=== PATIENT | male | born 1950 | race Caucasian/White ===

== ENCOUNTER → 2019-10-07 | Outpatient (CLI) | payer MEDICARE | END | disposition home or self-care (01) | LOC: LABPAT 07:59 | PROVIDERS: ATTEND Orthopaedic Surgery | DX: Z01.812 Encounter for preprocedural laboratory examination (principal) | CPT/HCPCS: 87070 ==

== ENCOUNTER 2019-10-26 08:50 | Day surgery (SDC) | payer MEDICARE ==
[2019-10-22 14:12] VITALS: BMI 28.5
--- NOTE | 2019-10-25 16:14 | HP ---
HISTORY AND PHYSICAL REASON FOR ADMISSION: Surgery scheduled for 10/26/2019 Rasheed Angulo is a 69-year-old patient seen with symptomatic right knee osteoarthritis. After having treatment options discussed, he elected to proceed with total knee arthroplasty. Consent regarding the procedure was obtained. Medical clearance was provided by Dr. Jose L Pedro. PAST MEDICAL HISTORY: Hypertension, hyperlipidemia. PAST SURGICAL HISTORY: Appendectomy. DAILY MEDICATIONS: Aspirin, atorvastatin, carvedilol, lisinopril, multivitamin. ALLERGIES: None. SOCIAL HISTORY: Smokes 1/4 pack cigarettes daily. PHYSICAL EXAMINATION: Evaluation of the right knee: Range of motion 0-130. Mild effusion. Tenderness medial joint line. Crepitus medial patellofemoral compartments range of motion. Pain with patellofemoral compression. Ligaments stable. Hip rotation without pain. Distal neurovascular exam is intact. RADIOGRAPHS: Right knee reveal severe osteoarthritis involving the medial patellofemoral compartments. IMPRESSION: 1. Right knee osteoarthritis. 2. Hypertension. 3. Hyperlipidemia. PLAN: Right total knee arthroplasty. Surgery 10/26/2019. MMODL / IJN: [id number] /
[~2019-10-26 08:50] MED LIST: ACETAMINOPHEN TAB 500 MG TAB PO ONE; DEXAMETHASONE SOD PHOSPHATE 10 MG/ML 1 ML VIAL IV ONE; HYDROmorphone 0.5 MG/0.5 ML SYRINGE IVP PRN; LIDOCAINE 1% 20 ML VIAL (10MG/ML) FOR IV START INTRADERMA PRN; MELOXICAM 7.5 MG TAB PO ONE; ONDANSETRON 4 MG/2 ML VIAL IVP ONE; ROPIVACAINE 246.25 MG, EPINEPHrine 0.5 MG, KETOROLAC 30 MG, cloNIDine HCL/PF 80 MCG, WA... MISCELLANE ONE; TRANEXAMIC ACID 1,000 MG in SODIUM CHLORIDE 0.9% 100 ML IVPB ONE
[2019-10-26] MEDS: LACTATED RINGERS 1,000 ML IV SCH ×4 (09:20→21:33)
[2019-10-26] MEDS: fentaNYL (PF) 50 MCG/ML 2 ML AMP IV ONE ×2 (09:38→10:08)
[2019-10-26] MEDS: MIDAZOLAM 2 MG/2 ML VIAL IV ONE ×2 (09:38→10:08)
[2019-10-26] MEDS ORDERED: TRANEXAMIC ACID 1,000 MG/10 ML VIAL ONE (10:08)
[2019-10-26] MEDS ORDERED: ePHEDrine SULFATE/0.9% NACL/PF 50 MG/5 ML SYRINGE IV ONE (10:08)
[2019-10-26] MEDS ORDERED: MIDAZOLAM 2 MG/2 ML VIAL ONE (10:08)
[2019-10-26] MEDS ORDERED: PROPOFOL 10 MG/ML 20 ML VIAL IV ONE (10:08)
[2019-10-26] MEDS ORDERED: PHENYLEPHRINE-0.9% NACL SYG 1 MG/10 ML SYRINGE ONE (10:08)
[2019-10-26] MEDS ORDERED: SODIUM CHLORIDE 0.9% 100 ML BAG ONE (10:08)
[2019-10-26] MEDS ORDERED: LACTATED RINGERS 1,000 ML IV ONE ×2 (10:10→11:20)
[2019-10-26] MEDS ORDERED: ROPIVACAINE 0.2%-NS ON-Q PUMP 1,090 MG, EMPTY PAIN BALL 1 EACH MISCELLANE PRN (10:34)
--- NOTE | 2019-10-26 10:36 | P.ANPRN ---
Procedure Note - Anesthesia - Nerve Block Performed Right Adductor Canal Infusion Time Out Performed: Yes Date of Procedure: 10/26/19 Procedure Start Time: 07:41 Procedure Stop Time: 07:48 Location of Patient: PreOp Indication: Acute Post-Operative Pain, Requested by Surgeon Specifically requested for management of pain by DrRobert: Guevara Guy Sedation Type: Sedate with meaningful contact maintained Preparation: Sterile Prep Position: Supine Catheter Depth at Skin (cm): 6 Catheter: Indwelling Needle Types: Pajunk Needle Gauge: 18 Ultrasound used to visualize needle placement: Yes Ultrasound used to observe medication spread: Yes Injectate: 0.5% Ropivacaine (see comment for volume) (20 cc) Blood Aspirated: No Pain Paresthesia on Injection Noted: No Resistance on Injection: Normal Image Stored and Saved: Yes Events: Uneventful and Well Tolerated
[2019-10-26] MEDS ORDERED: HYDROmorphone 0.5 MG/0.5 ML SYRINGE IVP PRN ×3 (12:31)
[2019-10-26] MEDS ORDERED: NALOXONE 0.4 MG/ML 1 ML VIAL IV PRN (12:31)
[2019-10-26] MEDS ORDERED: HYDROcodone/APAP 5-325MG 1 EACH TAB PO PRN ×2 (12:31)
[2019-10-26] MEDS ORDERED: ONDANSETRON 4 MG/2 ML VIAL IVP PRN (12:31)
--- NOTE | 2019-10-26 12:31 | P.OP ---
Date of Procedure: 10/26/19 Preoperative Diagnosis: Right knee osteoarthritis Postoperative Diagnosis: Right knee osteoarthritis Procedure(s) Performed: Right total knee arthroplasty Implants: 1. Microport evolution size 6 cemented femur 2. Microport evolution size 6+ cemented tibial baseplate 3. Microport evolution size 6 CS 14 mm polyethylene tibial insert 4. Microport advance 38 mm all polyethylene cemented patella Anesthesia: regional (Adductor canal catheter), local, spinal Surgeon: Guevara Guy Bilingual Research Interviewer #1: Carl Ariza Estimated Blood Loss (ml): 35 Pathology: none sent (Bone) Condition: stable Disposition: PACU Indications for Procedure: 69-year-old patient seen with symptomatic right knee osteoarthritis. After treatment options were discussed, he elected to proceed with total knee arthroplasty. Operative Findings: see description of procedure Description of Procedure: Patient was taken to the operative suite after having an adductor canal catheter placed by the department of anesthesia for postoperative pain management. Patient underwent a spinal anesthetic by the department of anesthesia. Patient was given preoperative IV intake antibiotics and TXA. A well-padded tourniquet was placed about the right lower extremity. The lower extremity was then prepped and draped in the normal sterile orthopedic fashion. The extremity was elevated, a tourniquet was insufflated to 300. A standard anterior incision was made sharply through skin. Dissection was taken down through the subcutaneous soft tissues down to the extensor mechanism. A medial arthrotomy was performed, patella was everted and knee was flexed. There was advanced osteoarthritis noted. I introduced my distal intramedullary femoral drill. I then introduced the distal femoral cutting jig. Preet HERNANDEZ secured the cutting jig with 2 pins. I held retractors in position while Preet HERNANDEZ performed the distal femoral resection through the guide area we now removed her distal femoral cutting guide. We now placed our 4-in-1 femoral cutting block and positioned and it was secured with 2 pins by Preet HERNANDEZ while I held the block in position. The distal femoral finishing was now completed. A proximal tibial cutting guide was positioned. I held the guide in the appropriate position with both hands well Preet HERNANDEZ inserted stabilizing pins into the guide. Proximal tibial cut was made. We now placed a trial femoral component into position, along with an appropriate size tibial tray and insert. We now took the knee through range of motion and had full extension good flexion and good overall soft tissue balance noted. The patella was everted and stabilized with 2 towel clips held by Preet HERNANDEZ while I performed a flush with patellar quad tendon utilizing a fresh sawblade. We templated the patella, appropriate drill holes were made. An appropriate trial patella was positioned, knee was taken through full range of motion with the patella tracking very nicely. The trial patella was removed. Drill holes were made through the femoral component. All trial components were removed after marking off the appropriate rotation of the tibia. Retractors were now positioned along the proximal tibia. An appropriate keel punch was made with the appropriate size tibial guide by myself on Preet HERNANDEZ assisted by holding retractors. At this point appropriate size implants were chosen and opened. The joint was irrigated copiously with pulse lavage mechanical irrigation. The posterior capsule was infiltrated with local analgesic. The wound was irrigated with pulse lavage mechanical irrigation. We mixed antibiotic methylmethacrylate. We placed the knee into flexion. We placed multiple retractors assisted by Preet HERNANDEZ to expose the proximal tibia. Once the methyl methacrylate was ready, the tibial component was cemented into place removing any excess methylmethacrylate form by both myself and Preet HERNANDEZ. The femoral component was cemented into place removing the removing any excess methylmethacrylate performed by both myself and Preet HERNANDEZ. We then inserted the appropriate size polyethylene tibial insert. We made sure that it was locked into position. We took the knee into full extension, and then back in a flexion making sure we had removed any excess methylmethacrylate. The patellar component was then cemented down and secured with clamp. Excess methylmethacrylate removed. We kept the knee in full extension, patellar clamp in position until methylmethacrylate had hardened. Once it had hardened the patellar clamp was removed. The knee was taken through full range of motion. The patella tracked nicely. There was good soft tissue balancing. The tourniquet was now released. Additional hemostasis was achieved via electrocautery. A second gram of TXA was given. The wound again was irrigated with pulse lavage mechanical irrigation. The superficial soft tissues were infiltrated local analgesic. The extensor mechanism was repaired with Vicryl. We checked the repair with range of motion and it was stable. The subcutaneous soft tissues were repaired with Vicryl in layers. The skin was approximated with pernio/Dermabond. Sterile dressings were applied followed by loose web roll and Diogenes bandage. The patient was transferred to a bed, and taken to recovery in stable and satisfactory condition. Preet HERNANDEZ assisted with this complex procedure.
--- NOTE | 2019-10-26 13:21 | XR ---
Right knee HISTORY: Status post right knee arthroplasty Frontal and lateral views of the right knee submitted Patient is status post right knee arthroplasty. There is an ectopic alignment. Lucency present in the soft tissues compatible with postop state. No fracture or dislocation is evident. Vascular calcifica tions noted incidentally. IMPRESSION: Orthopedic follow-up.
[2019-10-26] MEDS: NICOTINE 14MG/24HR PATCH TRANSDERM SCH (17:00)
[2019-10-26] MEDS: PANTOPRAZOLE 40 MG/10 ML VIAL IVP SCH (17:03)
[2019-10-26] MEDS: CARVEDILOL 12.5 MG TAB PO SCH (17:03)
[2019-10-26] MEDS: ENOXAPARIN 30 MG/0.3 ML SYRINGE SQ SCH (19:32)
[2019-10-26] MEDS ORDERED: SENNOSIDES-DOCUSATE SODIUM 1 EACH TAB PO SCH (21:00)
[2019-10-27] MEDS: LACTATED RINGERS 1,000 ML IV SCH ×2 (03:33→09:12)
[2019-10-27 07:13] LABS: Basophils % (A) 0 %; Eosinophils % (A) 0 %; HCT 37.1 % (39.0-53.0); HGB 12.5 gm/dL (13.0-17.5); Lymphocytes # (A) 1.5 k/uL (1.0-4.8); Lymphocytes % (A) 9 %; MCH 30.6 pg (25.0-35.0); MCHC 33.7 g/dL (31.0-37.0); Monocytes # (A) 1.1 k/uL (0-1.0); Monocytes % (A) 6 %; Neutrophils % (A) 82 %; Platelet Count 162 k/uL (150-450); RBC 4.08 m/uL (4.30-5.90); RDW 12.5 % (11.5-15.5)
[2019-10-27] MEDS: CARVEDILOL 12.5 MG TAB PO SCH (07:28)
[2019-10-27] MEDS: ENOXAPARIN 30 MG/0.3 ML SYRINGE SQ SCH (07:28)
[2019-10-27] MEDS: PANTOPRAZOLE 40 MG/10 ML VIAL IVP SCH (07:28)
[2019-10-27 08:02] VITALS: TEMP 98.2
[2019-10-27 08:03] VITALS: BP 131/74; PULSE 63; RESP 16
[2019-10-27] MEDS ORDERED: MELOXICAM 7.5 MG TAB PO SCH (09:00)
[2019-10-27] MEDS: NICOTINE 14MG/24HR PATCH TRANSDERM SCH (09:12)
--- NOTE | 2019-10-27 10:49 | P.PN ---
Subjective Progress Note Date: 10/27/19 Principal diagnosis: Status post right total knee arthroplasty Patient evaluated at bedside, he's doing very well. Pain is well-controlled. He's done well with therapy. Denies chest pain or shortness of breath. Objective - Vital Signs Vital signs: Vital Signs Temp 98.2 F 10/27/19 07:00 Pulse 63 10/27/19 07:00 Resp 16 10/27/19 07:00 BP 131/74 10/27/19 07:00 Pulse Ox 96 10/27/19 07:00 Intake & Output 10/26/19 10/27/19 10/27/19 18:59 06:59 18:59 Intake Total 1650 690 Output Total 35 200 Balance 1615 490 Weight 100 kg Intake: IV 1650 Intake, IV Titration 100 Amount ceFAZolin 2 gm In Sodium 100 Chloride 0.9% 50 ml @ 100 mls/hr IVPB Q8H [facility] Rx#: [id number] Oral 590 Output: Urine 200 Estimated Blood Loss 35 Other: Voiding Method Toilet # Voids 2 - Exam Right lower extremity: Incision is clean, dry, and intact. The exofin fusion tape is in good condition. There is minimal soft tissue swelling and ecchymosis surrounding the medial and lateral aspects of the incision. Calf is soft, no tenderness with palpation. Plantar flexion, dorsiflexion, EHL, FHL are intact. Sensory exam to light touch throughout the extremity is intact, dorsal pedis pulses 2+. - Labs CBC & Chem 7: 10/27/19 06:24 Labs: Abnormal Lab Results - Last 24 Hours (Table) 10/27/19 Range/Units 06:24 WBC 17.0 H (3.8-10.6) k/uL RBC 4.08 L (4.30-5.90) m/uL Hgb 12.5 L (13.0-17.5) gm/dL Hct 37.1 L (39.0-53.0) % Neutrophils # 14.0 H (1.3-7.7) k/uL Monocytes # 1.1 H (0-1.0) k/uL Assessment and Plan Plan: Assessment: Postop day 1 status post right total knee arthroplasty Plan: Pain control, discharge on oral medication GI and DVT prophylaxis, aspirin 81 mg twice a day Wound care instructions discussed Home physical therapy and nursing of discharge Medical recommendations Discharge home today Time with Patient: Less than 30
--- NOTE | 2019-10-27 10:52 | P.DS ---
Providers Date of admission: 10/26/2019 Expected date of discharge: 10/27/19 Attending physician: Guevara Guy Primary care physician: Jose L Pedro [place] Hospital Course: Date of admission: 10/26/2019 Date of discharge: 10/27/2019 Admission diagnosis: status post right total knee arthroplasty Discharge diagnosis: same Attending physician: Dr. Guy Surgical procedures: right total knee arthroplasty Brief history: Patient is a 69-year-old male with a history of progressive primary right knee osteoarthritis. At this point patient has failed conservative treatment measures and has opted to proceed with a elective right total knee arthroplasty. Hospital course: Details of patient's surgery can be found in operative report. Patient tolerated the procedure well and was subsequently transported to orthopedic floor. Patient's orthopeidc and medical care was provided daily. Patient had daily laboratory tests performed for evaluation of overall blood counts . Patient had daily physical therapy to include strengthening range of motion as well as education with walker ambulation. Patient had daily CPM usage as part of their physical therapy program. Patient was treated with Lovenox for their postoperative DVT prophylaxis during their inpatient stay. Patient was noted to have a relatively uneventful postoperative course. Patient reported satisfactory pain control with oral pain medications by postoperative day 0. Patient showed satisfactory progress with physical therapy. Patient moved steadily through the program and had no difficulty meeting the goals by postoperative day 1. Given patient's otherwise satisfactory course and having met physical therapy goals, plan is to discharge patient home on postoperative day 1. Discharge condition/disposition: Patient will be discharged home in stable condition. Discharge medications: Instructions are given on resumption of patient's normal daily medications per primary care recommendation, in addition patient will be prescribed echo 5 mg/325 mg, tramadol 50 mg, Colace 100 mg, aspirin 81 mg. Discharge instructions: 1. Wound care and infection precautions, keep incision dry and covered while showering, no lotions, creams, moisturizers. No soaking, tubs, pools, hottubs. Do not scrub over the incision. 2. Weight-bear as tolerated with walker / cane until follow-up. 3. Ice and elevate when necessary. Do not exceed 20 minutes per hour with ice pack. 4. Utilize compression sleeve until seen at first follow up appointment. 5. Visiting nursing care. 6. Home physical therapy including home CPM. 7. Pain meds and anticoagulants per prescription. 8. Pain medication has potential to cause constipation. Increase oral fluid and fiber intake. Contact primary care provider if you have not had a bowel movement within 48 hours after discharge 9. No anti-inflammatory medication until discussed at first post operative visit, this including Motrin, Aleve, Mobic, Diclofenac 10. Follow up in office at 2 weeks postop with Preet Ariza PA-C 11. Follow up with your primary care doctor 7-10 days after discharge. 12. Contact [facility] with any questions, . Procedures: right total knee arthroplasty Patient Condition at Discharge: Good Plan - Discharge Summary Discharge Rx Participant: Yes New Discharge Prescriptions: New Aspirin [Adult Low Dose Aspirin EC] 81 mg PO BID #60 tablet. Docusate [Colace] 100 mg PO DAILY #30 capsule Hydrocodone/Acetaminophen [[place] 5-325] 1 - 2 each PO Q6HR PRN #40 tab PRN Reason: Pain traMADol HCl [Ultram] 50 mg PO Q6H PRN #28 tab PRN Reason: Pain Discontinued Aspirin [Adult Low Dose Aspirin EC] 81 mg PO DAILY No Action [place] Oil/[place]-3 Fatty Acids [Fish Oil 500 mg Softgel] 2 each PO DAILY Multivitamin [Men's Multi-Vitamin] 1 each PO DAILY Lisinopril [Prinivil] 5 mg PO DAILY Carvedilol [Coreg*] 12.5 mg PO BID Ubidecarenone [Coq-10] 100 mg PO DAILY Atorvastatin [Lipitor] 80 mg PO DAILY Discharge Medication List Carvedilol [Coreg*] 12.5 mg PO BID 07/27/14 [History] Lisinopril [Prinivil] 5 mg PO DAILY 07/27/14 [History] Multivitamin [Men's Multi-Vitamin] 1 each PO DAILY 07/27/14 [History] [place] Oil/[place]-3 Fatty Acids [Fish Oil 500 mg Softgel] 2 each PO DAILY 07/27/14 [History] Ubidecarenone [Coq-10] 100 mg PO DAILY 07/27/14 [History] Atorvastatin [Lipitor] 80 mg PO DAILY 10/22/19 [History] Aspirin [Adult Low Dose Aspirin EC] 81 mg PO BID #60 tablet. 10/27/19 [Rx] Docusate [Colace] 100 mg PO DAILY #30 capsule 10/27/19 [Rx] Hydrocodone/Acetaminophen [[place] 5-325] 1 - 2 each PO Q6HR PRN #40 tab 10/27/19 [Rx] traMADol HCl [Ultram] 50 mg PO Q6H PRN #28 tab 10/27/19 [Rx] Follow up Appointment(s)/Referral(s): Guevara Guy DO [Doctor of Osteopathic Medicine] - 11/17/19 10:30 am [facility] Visiting Nurse, [NON-STAFF] - Activity/Diet/Wound Care/Special Instructions: Orthopedic Discharge Instructions: 1. Wound care and infection precautions, [keep incision dry and covered while s howering], no lotions, creams, moisturizers. No soaking, pools, hot tubs. Do not scrub over incision. 2. Weight-bear [as tolerated] with walker / cane until follow-up. 3. Ice and elevate when necessary. Do not exceed 20 minutes per hour with ice pack. 4. Utilize compression sleeve until seen at first follow up appointment. 5. Pain meds and anticoagulants per prescription. 6. Pain medication has potential to cause constipation. Increase oral fluid and fiber intake. Contact primary care provider if you have not had a bowel movement within 48 hours after discharge. 7. No anti-inflammatory medication until discussed at first post operative visit, this including Motrin, Aleve, Mobic, Diclofenac. 8. Follow up in office at 2 weeks postop with Preet Ariza PA-C 9. Follow up with your primary care doctor 7-10 days after discharge. 10. Contact [facility] with any questions, [phone]. 11. *Please call [facility] once home to arrange delivery of Continuous Passive Motion (CPM) [facility] - [phone]. Discharge Disposition: HOME SELF-CARE
--- NOTE | 2019-10-27 11:14 | P.CONS ---
History of Present Illness - Reason for Consult Consult date: 10/27/19 medical management CAD, hypertension, sleep apnea, ongoing nicotine depende Requesting physician: Guevara Guy - Chief Complaint Right knee osteoarthritis - History of Present Illness this is a 69-year-old gentleman status post right total knee arthroplasty for right knee osteoarthritis. Tolerated procedure well.Pain controlled,participating with physical therapy. Denies lightheadedness, dizziness or focal deficits. Passing flatus. Denies chest pain, palpitations or shortness of breath. Review of Systems Constitutional: Denied any fatigue denied any fever. Cardio vascular: denied any chest pain, palpitations Gastrointestinal denied any nausea vomiting Pulmonary: Denied any shortness of breath cough Neurologic denied any new focal deficits ROS Statement: Those systems with pertinent positive or pertinent negative responses have been documented in the HPI. ROS Other: All systems not noted in ROS Statement are negative. Past Medical History Past Medical History: Coronary Artery Disease (CAD), Hypertension, Myocardial Infarction (NE), Sleep Apnea/CPAP/BIPAP Last Myocardial Infarction Date:: 2007 History of Any Multi-Drug Resistant Organisms: None Reported Past Surgical History: Appendectomy, Coronary Bypass/CABG, Tonsillectomy Additional Past Surgical History / Comment(s): quadruple bypass 2007 Past Anesthesia/Blood Transfusion Reactions: No Reported Reaction Past Psychological History: No Psychological Hx Reported Smoking Status: Current every day smoker Past Alcohol Use History: Occasional Additional Past Alcohol Use History / Comment(s): smoker for 50 years 3-5 cig/d Past Drug Use History: None Reported - Past Family History Mother Family Medical History: No Reported History Medications and Allergies Home Medications Medication Instructions Recorded Confirmed Type Carvedilol [Coreg*] 12.5 mg PO BID 07/27/14 10/22/19 History Lisinopril [Prinivil] 5 mg PO DAILY 07/27/14 10/22/19 History Multivitamin [Men's Multi-Vitamin] 1 each PO DAILY 07/27/14 10/22/19 History [place] Oil/[place]-3 Fatty Acids 2 each PO DAILY 07/27/14 10/22/19 History [Fish Oil 500 mg Softgel] Ubidecarenone [Coq-10] 100 mg PO DAILY 07/27/14 10/22/19 History Atorvastatin [Lipitor] 80 mg PO DAILY 10/22/19 10/22/19 History Aspirin [Adult Low Dose Aspirin EC] 81 mg PO BID #60 tablet. 10/27/19 Rx Docusate [Colace] 100 mg PO DAILY #30 capsule 10/27/19 Rx Hydrocodone/Acetaminophen [[place] 1 - 2 each PO Q6HR PRN #40 tab 10/27/19 Rx 5-325] traMADol HCl [Ultram] 50 mg PO Q6H PRN #28 tab 10/27/19 Rx Allergies Allergy/AdvReac Type Severity Reaction Status Date / Time No Known Allergies Allergy Verified 10/26/19 09:05 Physical Exam Vitals: Vital Signs Temp Pulse Resp BP Pulse Ox 10/27/19 07:00 98.2 F 63 16 131/74 96 10/27/19 00:38 98.1 F 78 16 122/66 92 L 10/26/19 19:56 97.8 F 69 16 121/67 94 L 10/26/19 15:11 98.3 F 65 17 126/80 95 10/26/19 14:30 67 16 132/77 98 10/26/19 14:13 62 16 124/77 94 L 10/26/19 14:00 62 16 128/77 100 10/26/19 13:45 64 16 127/75 99 10/26/19 13:30 65 16 126/71 99 10/26/19 13:15 55 L 16 126/71 99 10/26/19 13:00 55 L 16 124/65 99 10/26/19 12:45 54 L 16 129/67 98 10/26/19 12:30 97 F L 51 L 14 123/60 96 Intake and Output 10/26/19 10/27/19 10/27/19 22:59 06:59 14:59 Intake Total 690 Output Total 200 Balance -200 690 Intake: Intake, IV Titration 100 Amount ceFAZolin 2 gm In Sodium 100 Chloride 0.9% 50 ml @ 100 mls/hr IVPB Q8H [facility] Rx#: [id number] Oral 590 Output: Urine 200 Other: Voiding Method Toilet # Voids 1 2 Weight 100 kg PHYSICAL EXAM: VITAL SIGNS: [as above] GENERAL: sitting up in chair, no acute distress HEENT: Conjunctivae normal. eyes normal. oral mucosa moist NECK: No JVD. No thyroid enlargement. No LNs CARDIOVASCULAR: S1, S2 regular.. No murmur RESPIRATION: Breath sounds diminished in the bases. No rhonchi or crackles. No bronchial breathing. ABDOMEN: Soft, nontender . No guarding. no masses palpable. No ascites, No hepatosplenomegaly.Bowel sounds heard. LEGS: right knee,soft with minimal edema,ecchymosis status post surgery, dressing clean dry and intact, positive DP pulse PSYCHIATRY: Alert and oriented X3, mood and affect normal. NERVOUS SYSTEM: Cranial N 2-12 grossly normal. Moves all 4 limbs. No focal deficits. Strength and sensation grossly intact.. Skin: no rash Lymphatic system. No LN neck axilla or groin. Results CBC & Chem 7: 10/27/19 06:24 Labs: Abnormal Lab Results - Last 24 Hours (Table) 10/27/19 Range/Units 06:24 WBC 17.0 H (3.8-10.6) k/uL RBC 4.08 L (4.30-5.90) m/uL Hgb 12.5 L (13.0-17.5) gm/dL Hct 37.1 L (39.0-53.0) % Neutrophils # 14.0 H (1.3-7.7) k/uL Monocytes # 1.1 H (0-1.0) k/uL Assessment and Plan Assessment: Right knee osteoarthritis, status post right total knee arthroplasty leukocytosis, suspect reactive CAD, history of NE,CABG Hypertension Sleep apnea, wears CPAP ongoing nicotine dependence Plan: Continue on current medication regime ,monitoring and symptomatic treatment.Pain management,DVT prophylaxis as per primary. PT. Home meds have been reviewed and resumed accordingly.Aggressive pulmonary toileting with incentive spirometer reinforced.Discharge planning in progress for today as per surgery. Follow-up with PCP in one week. Thank you for the consult. The impression and plan of care has been dictated as directed. : I performed a history and examination of this patient, discussed the same with the dictator. I agree with the dictator's note ,documented as a scribe. Any additional findings or plans will be noted.
--- NOTE | 2019-10-27 12:07 | P.PN ---
Progress Note - Text Anesthesia POD[1]. Patient is status post right TKR under spinal anesthesia with a right adductor canal catheter placed for postoperative pain relief. With ropivacaine 0.2% running at 10 cc's per hour, the patient's VAS is (1, 3). Catheter site is clean dry and intact.
== END 2019-10-27 12:33 | disposition home health service (06) ==
LOC: OR 08:50 → 4SSUR 12:26 → OR 10-27 12:33
PROVIDERS: ATTEND Orthopaedic Surgery
DX: M17.11 Unilateral primary osteoarthritis, right knee (principal); I10 Essential (primary) hypertension; I25.10 Atherosclerotic heart disease of native coronary artery without angina pectoris; I25.2 Old myocardial infarction; F17.210 Nicotine dependence, cigarettes, uncomplicated; G47.33 Obstructive sleep apnea (adult) (pediatric); E78.5 Hyperlipidemia, unspecified; Z79.82 Long term (current) use of aspirin; Z79.899 Other long term (current) drug therapy; Z98.890 Other specified postprocedural states; Z90.89 Acquired absence of other organs; Z99.89 Dependence on other enabling machines and devices; Z95.1 Presence of aortocoronary bypass graft; Z96.651 Presence of right artificial knee joint
CPT/HCPCS: 93005; 97161; 64448; 76942; 85025; 88300; 73560; 27447; C1776; C1713; J2250; J0171; J1100; J0690 ×2; J2405; J3010; J1885; J1650; J2795 ×2; J2370; J2704; J0735; C9113 ×2

== ENCOUNTER 2022-11-12 19:09 | Emergency (ER) | payer MEDICARE ==
[2022-11-12 19:36] VITALS: TEMP 98.6
[2022-11-12] MEDS ORDERED: IPRATROPIUM-ALBUTEROL 3 ML NEB INHALATION STA (20:53)
[2022-11-12] MEDS ORDERED: methylPREDNISolone SOD SUCCI 125 MG/2 ML VIAL IV STA (20:53)
--- NOTE | 2022-11-12 20:58 | ED ---
General Adult HPI - General Chief complaint: Shortness of Breath Stated complaint: sob Time Seen by Provider: 11/12/22 20:27 Source: patient, RN notes reviewed Mode of arrival: ambulatory Limitations: no limitations - History of Present Illness Initial comments: 72-year-old male presents to the emergency Department with complaints of increasing shortness of breath over the past few days. States he has a strong nonproductive cough. Reports feeling chilled. Reports chest tightness with coughing. Does have some pain with breathing. No history of COPD, asthma, or emphysema, however has been a pack-a-day smoker for more than 50 years. No known sick contacts, however was at a large concert venue within the past week. Denies fever, headache, dizziness, palpitations, abdominal pain, nausea, vomiting, diarrhea, appetite changes, dysuria, or lower extremity edema. - Related Data Home Medications Medication Instructions Recorded Confirmed Lisinopril [Prinivil] 5 mg PO DAILY 07/27/14 11/12/22 carvediloL [Coreg*] 12.5 mg PO BID 07/27/14 11/12/22 Atorvastatin [Lipitor] 80 mg PO DAILY 10/22/19 11/12/22 Sildenafil Citrate [Viagra] 100 mg PO DAILY PRN 11/12/22 11/12/22 Previous Rx's Medication Instructions Recorded Aspirin [Adult Low Dose Aspirin EC] 81 mg PO BID #60 tablet. 10/27/19 Oseltamivir [Tamiflu] 75 mg PO Q12HR 5 Days #10 cap 11/12/22 Allergies Allergy/AdvReac Type Severity Reaction Status Date / Time No Known Allergies Allergy Verified 11/12/22 22:24 Review of Systems ROS Statement: Those systems with pertinent positive or pertinent negative responses have been documented in the HPI. ROS Other: All systems not noted in ROS Statement are negative. Past Medical History Past Medical History: Coronary Artery Disease (CAD), Hypertension History of Any Multi-Drug Resistant Organisms: None Reported Past Surgical History: Appendectomy, Coronary Bypass/CABG Additional Past Surgical History / Comment(s): quadruple bypass 2007 Past Psychological History: No Psychological Hx Reported Smoking Status: Current every day smoker Past Alcohol Use History: Occasional Past Drug Use History: None Reported General Exam Limitations: no limitations (Well-developed, well-nourished male in no acute distress.) General appearance: alert, in no apparent distress Eye exam: Present: normal appearance. Absent: scleral icterus, conjunctival injection Respiratory exam: Present: decreased breath sounds (Diminished breath sounds diffusely. Faint scattered wheezes throughout the lung mulligan), other (Strong congested cough). Absent: accessory muscle use Cardiovascular Exam: Present: regular rate, normal rhythm GI/Abdominal exam: Present: soft, normal bowel sounds. Absent: distended, tenderness, guarding, rebound, rigid Neurological exam: Present: alert, oriented X3, CN II-XII intact Psychiatric exam: Present: normal affect, normal mood Skin exam: Present: warm, dry, intact, normal color. Absent: rash Course Vital Signs 11/12/22 11/12/22 11/12/22 19:32 20:36 21:33 Temperature 98.6 F Pulse Rate 79 68 Respiratory 16 18 Rate Blood Pressure 159/84 O2 Sat by Pulse 94 L Oximetry 11/12/22 11/12/22 21:41 22:36 Temperature Pulse Rate 70 70 Respiratory 16 Rate Blood Pressure 115/77 O2 Sat by Pulse 94 L Oximetry - Reevaluation(s) Reevaluation #1: 11/12/22 23:00 Upon reevaluation, patient reports feeling improved after breathing treatment. Updated on results. Patient verbalizes readiness for discharge. Medical Decision Making - Medical Decision Making 72-year-old male with a past medical history of COPD presents to the emergency Department with complaints of shortness of breath and productive cough. Upon exam, patient is mildly tachypneic with scattered wheezing. He has noted to h ave a strong productive cough with yellow sputum. Patient was given a DuoNeb and Solu-Medrol with some improvement. Chest x-ray shows no infiltrate or consolidation. Laboratory studies were obtained. D-dimer 0.59. Lactic 0.9. Troponin negative. BNP 162. Cepheid positive for influenza A. Patient will be started on Tamiflu and instructed on symptomatic management. He will be discharged home to follow up with his PCP for recheck as needed. Return parameters were discussed in detail. Patient verbalizes understanding and agrees with this plan. Attending: Nayeli Was pt. sent in by a medical professional or institution? @ -No Did you speak to anyone other than the patient for history? @ -No Did you review nursing and triage notes? @ -Yes, agree Were old charts reviewed? @ -Yes Differential Diagnosis? @ -Asthma, bronchitis, COPD exacerbation, pneumonia, influenza, Covid, RSV , this is not meant to be an exhaustive list EKG interpreted by me (3pts min.)? @ -Not applicable X-rays interpreted by me (1pt min.)? @ -Chest x-ray as interpreted by me shows no focal area of consolidation or infiltrate. CT interpreted by me (1pt min.)? @ -Not applicable U/S interpreted by me (1pt. min.)? @ -Not applicable What testing was considered but not performed? (CT, X-rays, U/S, labs)? Why? @ -CT PE study was considered, however d-dimer was not elevated. What meds were considered but not given? Why? @ -None Did you discuss the management of the patient with other professionals? @ -None Did you reconcile home meds? @ -No Was smoking cessation discussed for >3mins.? @ -No Was critical care preformed (if so, how long)? @ -No Were there social determinants of health that impacted care today? How? (Homelessness, low income, unemployed, alcoholism, drug addiction, transportation, low edu. Level, literacy, decrease access to med. care, prison, rehab)? @ -No Was there de-escalation of care discussed even if they declined? (Discuss DNR or withdrawal of care, Hospice)? @ -No What co-morbidities impacted this encounter? (DM, HTN, Smoking, COPD, CAD, Cancer, CVA, Hep., AIDS, mental health diagnosis, sleep apnea, morbid obesity)? @ -COPD Was patient admitted / discharged? @ -Discharged Undiagnosed new problem with uncertain prognosis? @ -None Drug Therapy requiring intensive monitoring for toxicity (Heparin, Nitro, Insulin, Cardizem)? @ -None Were any procedures done? @ -None Diagnosis/symptom? @ -Influenza a Acute, or Chronic, or Acute on Chronic? @ -Acute Uncomplicated (without systemic symptoms) or Complicated (systemic symptoms)? @ -Uncomplicated Side effects of treatment? @ -Tamiflu can cause some GI discomfort. Exacerbation, Progression, or Severe Exacerbation] @ -No Poses a threat to life or bodily function? @ -No - Lab Data Result diagrams: 11/12/22 20:53 11/12/22 20:53 Lab Results 11/12/22 11/12/22 11/12/22 Range/Units 20:53 20:53 20:53 WBC 6.1 (3.8-10.6) k/uL RBC 5.06 (4.30-5.90) m/uL Hgb 15.8 (13.0-17.5) gm/dL Hct 45.7 (39.0-53.0) % MCV 90.3 (80.0-100.0) fL MCH 31.3 (25.0-35.0) pg MCHC 34.7 (31.0-37.0) g/dL RDW 12.6 (11.5-15.5) % Plt Count 107 L (150-450) k/uL MPV 10.3 Neutrophils % 74 % Lymphocytes % 9 % Monocytes % 11 % Eosinophils % 2 % Basophils % 1 % Neutrophils # 4.5 (1.3-7.7) k/uL Lymphocytes # 0.6 L (1.0-4.8) k/uL Monocytes # 0.6 (0-1.0) k/uL Eosinophils # 0.2 (0-0.7) k/uL Basophils # 0.1 (0-0.2) k/uL PT 9.9 (9.0-12.0) sec INR 0.9 (<1.2) APTT 26.6 (22.0-30.0) sec D-Dimer 0.59 (<0.60) mg/L FEU Sodium 135 L (137-145) mmol/L Potassium 4.4 (3.5-5.1) mmol/L Chloride 102 (98-107) mmol/L Carbon Dioxide 26 (22-30) mmol/L Anion Gap 7 mmol/L BUN 15 (9-20) mg/dL Creatinine 0.73 (0.66-1.25) mg/dL Est GFR (CKD-EPI)AfAm >90 (>60 ml/min/1.73 sqM) Est GFR (CKD-EPI)NonAf >90 (>60 ml/min/1.73 sqM) Glucose 109 H (74-99) mg/dL Plasma Lactic Acid Paulo (0.7-2.0) mmol/L Calcium 9.2 (8.4-10.2) mg/dL Magnesium 2.0 (1.6-2.3) mg/dL Total Bilirubin 0.5 (0.2-1.3) mg/dL AST 32 (17-59) U/L ALT 30 (4-49) U/L Alkaline Phosphatase 83 (38-126) U/L Troponin I (0.000-0.034) ng/mL NT-Pro-B Natriuret Pep pg/mL Total Protein 6.9 (6.3-8.2) g/dL Albumin 4.3 (3.5-5.0) g/dL Influenza Type A (PCR) (Not Detectd) Influenza Type B (PCR) (Not Detectd) RSV (PCR) (Not Detectd) SARS-CoV-2 (PCR) (Not Detectd) 11/12/22 11/12/22 11/12/22 Range/Units 20:53 20:53 20:53 WBC (3.8-10.6) k/uL RBC (4.30-5.90) m/uL Hgb (13.0-17.5) gm/dL Hct (39.0-53.0) % MCV (80.0-100.0) fL MCH (25.0-35.0) pg MCHC (31.0-37.0) g/dL RDW (11.5-15.5) % Plt Count (150-450) k/uL MPV Neutrophils % % Lymphocytes % % Monocytes % % Eosinophils % % Basophils % % Neutrophils # (1.3-7.7) k/uL Lymphocytes # (1.0-4.8) k/uL Monocytes # (0-1.0) k/uL Eosinophils # (0-0.7) k/uL Basophils # (0-0.2) k/uL PT (9.0-12.0) sec INR (<1.2) APTT (22.0-30.0) sec D-Dimer (<0.60) mg/L FEU Sodium (137-145) mmol/L Potassium (3.5-5.1) mmol/L Chloride (98-107) mmol/L Carbon Dioxide (22-30) mmol/L Anion Gap mmol/L BUN (9-20) mg/dL Creatinine (0.66-1.25) mg/dL Est GFR (CKD-EPI)AfAm (>60 ml/min/1.73 sqM) Est GFR (CKD-EPI)NonAf (>60 ml/min/1.73 sqM) Glucose (74-99) mg/dL Plasma Lactic Acid Paulo 0.9 (0.7-2.0) mmol/L Calcium (8.4-10.2) mg/dL Magnesium (1.6-2.3) mg/dL Total Bilirubin (0.2-1.3) mg/dL AST (17-59) U/L ALT (4-49) U/L Alkaline Phosphatase (38-126) U/L Troponin I <0.012 (0.000-0.034) ng/mL NT-Pro-B Natriuret Pep 162 pg/mL Total Protein (6.3-8.2) g/dL Albumin (3.5-5.0) g/dL Influenza Type A (PCR) (Not Detectd) Influenza Type B (PCR) (Not Detectd) RSV (PCR) (Not Detectd) SARS-CoV-2 (PCR) (Not Detectd) 11/12/22 Range/Units 20:54 WBC (3.8-10.6) k/uL RBC (4.30-5.90) m/uL Hgb (13.0-17.5) gm/dL Hct (39.0-53.0) % MCV (80.0-100.0) fL MCH (25.0-35.0) pg MCHC (31.0-37.0) g/dL RDW (11.5-15.5) % Plt Count (150-450) k/uL MPV Neutrophils % % Lymphocytes % % Monocytes % % Eosinophils % % Basophils % % Neutrophils # (1.3-7.7) k/uL Lymphocytes # (1.0-4.8) k/uL Monocytes # (0-1.0) k/uL Eosinophils # (0-0.7) k/uL Basophils # (0-0.2) k/uL PT (9.0-12.0) sec INR (<1.2) APTT (22.0-30.0) sec D-Dimer (<0.60) mg/L FEU Sodium (137-145) mmol/L Potassium (3.5-5.1) mmol/L Chloride (98-107) mmol/L Carbon Dioxide (22-30) mmol/L Anion Gap mmol/L BUN (9-20) mg/dL Creatinine (0.66-1.25) mg/dL Est GFR (CKD-EPI)AfAm (>60 ml/min/1.73 sqM) Est GFR (CKD-EPI)NonAf (>60 ml/min/1.73 sqM) Glucose (74-99) mg/dL Plasma Lactic Acid Paulo (0.7-2.0) mmol/L Calcium (8.4-10.2) mg/dL Magnesium (1.6-2.3) mg/dL Total Bilirubin (0.2-1.3) mg/dL AST (17-59) U/L ALT (4-49) U/L Alkaline Phosphatase (38-126) U/L Troponin I (0.000-0.034) ng/mL NT-Pro-B Natriuret Pep pg/mL Total Protein (6.3-8.2) g/dL Albumin (3.5-5.0) g/dL Influenza Type A (PCR) Detected A (Not Detectd) Influenza Type B (PCR) Not Detected (Not Detectd) RSV (PCR) Not Detected (Not Detectd) SARS-CoV-2 (PCR) Not Detected (Not Detectd) - Radiology Data Radiology results: report reviewed, image reviewed Interpreted by me: X-rays interpreted by me shows no area of consolidation infiltrate. Two-view chest x-ray was obtained. Report was reviewed in its entirety. Impression per Dr. Guevara is no active cardiopulmonary disease. Normal heart. Disposition Clinical Impression: Influenza A Disposition: HOME SELF-CARE Condition: Stable Instructions (If sedation given, give patient instructions): Influenza (ED) Additional Instructions: Rest. Increase fluids. Tamiflu was sent to your pharmacy. Alternate Tylenol and Motrin as needed for fever control and body aches. Follow-up with your PCP for a recheck in 48 hours if not improving. Return to the emergency department with any new, worsening, or concerning symptoms. Prescriptions: Oseltamivir [Tamiflu] 75 mg PO Q12HR 5 Days #10 cap Is patient prescribed a controlled substance at d/c from ED?: No Referrals: Jose L Pedro DO [Primary Care Provider] - 1-2 days Time of Disposition: 23:20
--- NOTE | 2022-11-12 21:21 | XR ---
EXAMINATION TYPE: XR chest 2V DATE OF EXAM: 11/12/2022 COMPARISON: NONE HISTORY: Short of breath TECHNIQUE: 2 views FINDINGS: There is no heart failure nor confluent pneumonic infiltrate. There are sternal wires. Ther e are chest leads. Costophrenic angles are clear. Bony thorax is intact. IMPRESSION: No active cardiopulmonary disease. Normal heart.
[2022-11-12 21:41] VITALS: PULSE 70
[2022-11-12 22:00] LABS: Basophils # (A) 0.1 k/uL (0-0.2); Basophils % (A) 1 %; Eosinophils # (A) 0.2 k/uL (0-0.7); Eosinophils % (A) 2 %; HCT 45.7 % (39.0-53.0); HGB 15.8 gm/dL (13.0-17.5); Lymphocytes # (A) 0.6 k/uL (1.0-4.8); Lymphocytes % (A) 9 %; MCH 31.3 pg (25.0-35.0); MCHC 34.7 g/dL (31.0-37.0); MCV 90.3 fL (80.0-100.0); Mean Platelet Volume 10.3; Monocytes # (A) 0.6 k/uL (0-1.0); Monocytes % (A) 11 %; Neutrophils # (A) 4.5 k/uL (1.3-7.7); Neutrophils % (A) 74 %; Platelet Count 107 k/uL (150-450); RBC 5.06 m/uL (4.30-5.90); RDW 12.6 % (11.5-15.5); WBC 6.1 k/uL (3.8-10.6)
[2022-11-12 22:10] LABS: ALT 30 U/L (4-49); AST 32 U/L (17-59); African American GFR (CKD) >90 (>60 ml/min/1.73 sqM); Albumin 4.3 g/dL (3.5-5.0); Alkaline Phosphatase 83 U/L (38-126); Anion Gap 7 mmol/L; Blood Urea Nitrogen 15 mg/dL (9-20); Calcium 9.2 mg/dL (8.4-10.2); Carbon Dioxide 26 mmol/L (22-30); Chloride 102 mmol/L (98-107); Glucose 109 mg/dL (74-99); Non-African American GFR(CKD) >90 (>60 ml/min/1.73 sqM); Potassium 4.4 mmol/L (3.5-5.1); Sodium 135 mmol/L (137-145); Total Bilirubin 0.5 mg/dL (0.2-1.3); Total Protein 6.9 g/dL (6.3-8.2)
[2022-11-12 22:16] LABS: INR 0.9 (<1.2); Partial Thromboplastin Time 26.6 sec (22.0-30.0); Prothrombin Time 9.9 sec (9.0-12.0)
[2022-11-12] MEDS ORDERED: OSELTAMIVIR 75 MG CAP PO STA (23:18)
[2022-11-13 01:58] VITALS: BP 115/77; RESP 16
== END 2022-11-12 23:40 | disposition home or self-care (01) ==
LOC: EC 19:09
DX: J10.1 Influenza due to other identified influenza virus with other respiratory manifestations (principal); I25.10 Atherosclerotic heart disease of native coronary artery without angina pectoris; I10 Essential (primary) hypertension; F17.200 Nicotine dependence, unspecified, uncomplicated; Z79.899 Other long term (current) drug therapy; Z20.822 Contact with and (suspected) exposure to COVID-19
CPT/HCPCS: 36415; 94640; 85379; 83880; 80053; 83605; 83735; 84484; 85025; 85610; 85730; 87636; 71046; 99285; 96374; J2930

== ENCOUNTER → 2023-05-01 | Outpatient (CLI) | payer MEDICARE ==
--- NOTE | 2023-05-01 14:38 | P.SLEEP ---
History of Present Illness DATE: 05/01/2023 CONSULTATION/NEW PATIENT EVALUATION HISTORY OF PRESENT ILLNESS/SLEEP-WAKE EVALUATION: 72 year old gentleman had been evaluated in the sleep center for possible obstructive sleep apnea hypopnea syndrome. Patient had been diagnosed with obstructive sleep apnea in another institution about 12 years ago. At that time she was started on treatment with CPAP, but was not able to use CPAP therapy. SLEEP SCHEDULE: Usually sleep schedule from 1112 to 78 AM 7 days a week. FALLING ASLEEP: Sometimes patient has problems with falling asleep, although no TV in bedroom. DURING SLEEP: Patient snores and wakes up from sleep up to 4 times without nocturia. No history of hypnogogical hallucinations, sleep paralysis, or cataplexy. DURING THE DAY/WAKE STATE: In the morning patient wake up tired. [place] sleepiness scale is 4. Patient takes 1 nap at around 2 PM. PAST MEDICAL HISTORY: Coronary artery disease, hypertension, hyperlipidemia. PAST SURGICAL HISTORY: CABG 4, right knee replacement. MEDICATIONS: Carvedilol 12.5 mg once a day, lisinopril 5 mg once a day, atorvastatin 20 mg once a day. SOCIAL HISTORY: Positive for smoking for 53 years presently about 10 cigarettes a day, alcohol consumption occasional. FAMILY HISTORY: Hypertension, heart problems. REVIEW OF SYSTEMS: Snoring, multiple awakenings from sleep. No fevers. No double vision. No recent chest pain. No shortness of breath. No abdominal pain. No bleeding episodes. No blood in urine. No seizure episodes. PHYSICAL EXAMINATION: GENERAL: A pleasant patient without any distress. VITAL SIGNS: BP 165/88 , HR 76 , RR 12 , weight 241.2 pounds, height 5 foot 10 inches, body mass index 34.5 . HEENT: PERRLA, EOMI. Evaluation of oropharynx showed tongue protrudes midline, low position of soft palate Mallampati 4. NECK: Supple. No JVD. Thyroid is not palpable. 17.5 inches in circumference. LUNGS: Clear to percussion and to auscultation. Good air exchange. No wheezing or rhonchi. HEART: S1, S2 regular. No murmurs, gallops or rubs. ABDOMEN: Soft and nontender. Bowel sounds are present. No organomegaly paula reciated. EXTREMITIES: No clubbing or cyanosis. PRESS WASHER: Awake, alert, and oriented x3. Cranial nerves 2 to 7 intact. There is no fasciculation or atrophy noted. No focal deficits observed. ASSESSMENT: 1. Snoring, multiple awakenings from sleep, extremely low position of soft palate Mallampati 4, wide neck 17.5 inches in circumference, history of obstructive sleep apnea hypopnea syndrome in the past. Obstructive sleep apnea hypopnea syndrome. 2. Mild obesity by body mass index 34.5. 3. Coronary artery disease, status post CABG 4. 4. Hypertension. 5 hyperlipidemia. 6 . Status post right knee replacement. PLAN: 1. Polysomnography for evaluation of patient's breathing during sleep. 2. CPAP/BiPAP titration if sleep study confirms obstructive sleep apnea- hypopnea syndrome. 3. Preferable position during sleep on the side. 4. No driving if patient feels any sleepiness. Patient is aware of civil and criminal liability for unsafe driving. 5. Sleep hygiene with regular sleep time for at least 7.5-8 hours. 6. Watching weight. Thank you very much for referring this patient for consultation. Sincerely, Bg Viveros MD, PhD, FAASM. Diplomat of [place] [employer], Sleep Medicine Board by [place] [employer] [place] [employer] Can Sterilizer of [facility] [place] Past Medical History Past Medical History: Coronary Artery Disease (CAD), Hypertension History of Any Multi-Drug Resistant Organisms: None Reported Past Surgical History: Appendectomy, Coronary Bypass/CABG Additional Past Surgical History / Comment(s): quadruple bypass 2007 Past Psychological History: No Psychological Hx Reported Smoking Status: Current every day smoker Past Alcohol Use History: Occasional Past Drug Use History: None Reported Medications and Allergies Home Medications Medication Instructions Recorded Confirmed Type Lisinopril [Prinivil] 5 mg PO DAILY 07/27/14 11/12/22 History carvediloL [Coreg*] 12.5 mg PO BID 07/27/14 11/12/22 History Atorvastatin [Lipitor] 80 mg PO DAILY 10/22/19 11/12/22 History Aspirin [Adult Low Dose Aspirin EC] 81 mg PO BID #60 tablet. 10/27/19 11/12/22 Rx Oseltamivir [Tamiflu] 75 mg PO Q12HR 5 Days #10 cap 11/12/22 Rx Sildenafil Citrate [Viagra] 100 mg PO DAILY PRN 11/12/22 11/12/22 History Allergies Allergy/AdvReac Type Severity Reaction Status Date / Time No Known Allergies Allergy Verified 11/12/22 22:24 Sleep Note - Sleep Note Sleep Note: Temperature: Pulse Rate: Respiratory Rate: Blood Pressure: SpO2: Height: Weight: BMI: Neck Circumference:
== END ==
LOC: 3 N SLEEP 13:57
PROVIDERS: ATTEND Internal Medicine
DX: G47.33 Obstructive sleep apnea (adult) (pediatric) (principal); E66.9 Obesity, unspecified; I25.810 Atherosclerosis of coronary artery bypass graft(s) without angina pectoris; F17.200 Nicotine dependence, unspecified, uncomplicated; I10 Essential (primary) hypertension; E78.5 Hyperlipidemia, unspecified; Z96.651 Presence of right artificial knee joint; Z68.34 Body mass index [BMI] 34.0-34.9, adult; Z99.89 Dependence on other enabling machines and devices; Z79.899 Other long term (current) drug therapy
CPT/HCPCS: 99211

== ENCOUNTER → 2023-09-18 | Outpatient (CLI) | payer MEDICARE ==
--- NOTE | 2023-09-18 17:41 | P.PN ---
Subjective DATE: 09/18/2023 FOLLOW UP VISIT. Patient with obstructive sleep apnea hypopnea syndrome return to sleep center for follow-up visit. Recently patient had sleep study which documented obstructive sleep apnea hypopnea syndrome. Patient was initiated on PAP therapy and today is first visit after treatment was started. Patient was able to use PAP equipment most of the nights. Patient sleeps better after started to use CPAP equipment. The patient does not have significant problems with the mask, PAP pressure and humidification. [place] sleepiness scale is 7. I checked information from PAP unit. PAP unit pressure 5-14, average 9.9 cm H2O. Usage is 70% , average 4.5 hours per night. Leak is slightly increased to 32.0 l/m. Apnea Hypopnea Index is 3.6, which is normal. MEDICATIONS:1. Carvedilol 12.5 mg once a day 2. Lisinopril 5 mg once a day 3. Atorvastatin 20 mg once a day During physical exam: GENERAL: A pleasant patient without any distress. VITAL SIGNS: BP 163/88, HR 81, RR 16 , weight 249.6, temperature 98.1, oxygen saturation at room air 96% . HEENT: PERRLA, EOMI.low position of soft palate, Mallapati 4 . NECK: Supple. No JVD. LUNGS: Clear to percussion and to auscultation. Good air exchange. No wheezing or rhonchi. HEART: S1, S2 regular. ABDOMEN: Soft and nontender.[] EXTREMITIES: No clubbing or cyanosis. RAIL BENDER: Awake, alert, and oriented x3. No focal deficit. Impressions: 1. Obstructive sleep apnea-hypopnea syndrome. Patient demonstrated borderline compliance with treatment, benefiting from treatment. 2. Coronary artery disease, status post CABG. 3. Hypertension. 4. Hyperlipidemia. 5. Status post right knee replacement. 6. Mild obesity, patient increased weight 18 pounds comparing with previous visit. Plan: 1. Continue using PAP equipment every night for the whole night.Extent trial period for another 90 days. 2. To change air filter at least 1-2 times per month. 3. PAP unit should stay lower then position of the head. 4. Advised patient to remove all remaining water from humidifier canister daily and make it dry after each usage. Refill canister with fresh distilled water before each usage. 5. Sleep hygiene with regular time in bed for at least 8 hours. 6. Precautions related to driving. No driving if feel any sleepiness. 7. I will maintain prescription for PAP supplies including mask, tube, filters. 8. Follow up visit in 6 months or earlier if patient has any problems. 9. Watching weight. Thank you very much for allowing me to participate in the management of your patient. Bg Viveros MD, PhD, FAASM. Diplomat of [place] [employer], Sleep Medicine Board by [place] [employer] Director Validation of [facility] [place]
== END ==
LOC: 3 N SLEEP 15:35
PROVIDERS: ATTEND Internal Medicine
DX: G47.33 Obstructive sleep apnea (adult) (pediatric) (principal); E66.9 Obesity, unspecified; E78.5 Hyperlipidemia, unspecified; I10 Essential (primary) hypertension; I25.10 Atherosclerotic heart disease of native coronary artery without angina pectoris; F17.200 Nicotine dependence, unspecified, uncomplicated; Z95.1 Presence of aortocoronary bypass graft; Z79.899 Other long term (current) drug therapy; Z96.651 Presence of right artificial knee joint; Z99.89 Dependence on other enabling machines and devices; Z79.82 Long term (current) use of aspirin
CPT/HCPCS: 99212

== ENCOUNTER → 2024-04-23 | Outpatient (CLI) | payer MEDICARE ==
[2024-04-23 16:14] VITALS: BP 138/71; PULSE 82; RESP 16; TEMP 98.1
--- NOTE | 2024-04-23 16:30 | P.PROGSL ---
Subjective DATE: 04/24/2024 FOLLOW UP VISIT. Patient with obstructive sleep apnea hypopnea syndrome return to sleep center for follow-up visit. Information from previous visit have been reviewed. Patient is using PAP equipment every night for the whole night, getting PAP supplies in time. The patient does not have significant problems with the mask, PAP unit and humidification. [place] sleepiness scale is 4, which is normal. I checked information from PAP unit. PAP unit pressure 5-14, average 6.8 cm H2O. Usage is 87% and 73% for more then 4 hours, average 5.75 hours per night. Leak is significantly increased to 83.3 l/m. Patient sleeps well with the CPAP unit, no complaints on leak. Apnea Hypopnea Index is 1.7, which is normal. MEDICATIONS: Please see below During physical exam: GENERAL: A pleasant patient without any distress. VITAL SIGNS: Please see below, weight 234 pounds, BMI 33.7. HEENT: PERRLA, EOMI.low position of soft palate, Mallapati 4 . NECK: Supple. No JVD. LUNGS: Clear to percussion and to auscultation. Good air exchange. No wheezing or rhonchi. HEART: S1, S2 regular. ABDOMEN: Soft and nontender.[] EXTREMITIES: No clubbing or cyanosis. GAS SYSTEMS WORKER: Awake, alert, and oriented x3. No focal deficit. Impressions: 1. Obstructive sleep apnea-hypopnea syndrome. Patient demonstrated great compliance with treatment, benefiting from treatment. High leak from the mask, but the patient feels comfortable with the mask and normal apnea hypopnea index. 2. Coronary artery disease, status post CABG. 3. Hypertension. 4. Hyperlipidemia. 5. Status post right knee replacement. 6. Mild obesity, BMI 33.7, patient lost 13 pounds since previous visit. Plan: 1. Continue using PAP equipment every night for the whole night. 2. To change air filter at least 1-2 times per month. 3. PAP unit should stay lower then position of the head. 4. Advised patient to remove all remaining water from humidifier canister daily and make it dry after each usage. Refill canister with fresh distilled water before each usage. 5. Sleep hygiene with regular time in bed for at least 8 hours. 6. Precautions related to driving. No driving if feel any sleepiness. 7. I will maintain prescription for PAP supplies including mask, tube, filters. 8. Watching weight. 9. Follow up visit in 6 months or earlier if patient has any problems. Thank you very much for allowing me to participate in the management of your patient. Bg Viveros MD, PhD, FAASM. Diplomat of [place] [employer] Medicine, Sleep Medicine Board by [place] [employer] Medicine Food Science Technician of [facility] [place] Objective - Vital Signs Vital Signs: Vital Signs Temp 98.1 F 04/23/24 16:13 Pulse 82 04/23/24 16:13 Resp 16 04/23/24 16:13 BP 138/71 04/23/24 16:13 Pulse Ox 95 04/23/24 16:13 FiO2 Intake & Output 04/22/24 04/23/24 04/23/24 18:59 06:59 18:59 Weight 106.141 kg Home Medications: Home Medications Medication Instructions Recorded Confirmed Type Lisinopril [Prinivil] 5 mg PO DAILY 07/27/14 04/23/24 History carvediloL [Coreg*] 12.5 mg PO BID 07/27/14 04/23/24 History Atorvastatin [Lipitor] 80 mg PO DAILY 10/22/19 04/23/24 History Aspirin [Adult Low Dose Aspirin EC] 81 mg PO BID #60 tablet. 10/27/19 04/23/24 Rx Oseltamivir [Tamiflu] 75 mg PO Q12HR 5 Days #10 cap 11/12/22 Rx Sildenafil Citrate [Viagra] 100 mg PO DAILY PRN 11/12/22 11/12/22 History
== END | disposition home or self-care (01) ==
LOC: 3 N SLEEP 15:37
PROVIDERS: ATTEND Internal Medicine
DX: G47.33 Obstructive sleep apnea (adult) (pediatric) (principal); E66.9 Obesity, unspecified; I25.10 Atherosclerotic heart disease of native coronary artery without angina pectoris; I10 Essential (primary) hypertension; E78.5 Hyperlipidemia, unspecified; F17.200 Nicotine dependence, unspecified, uncomplicated; Z68.33 Body mass index [BMI] 33.0-33.9, adult; Z95.1 Presence of aortocoronary bypass graft; Z96.651 Presence of right artificial knee joint; Z99.89 Dependence on other enabling machines and devices; Z79.899 Other long term (current) drug therapy
CPT/HCPCS: 99212

== ENCOUNTER → 2024-08-27 | Outpatient (CLI) | payer MEDICARE ==
--- NOTE | 2024-08-28 01:29 | MR ---
EXAMINATION TYPE: MR knee LT wo con DATE OF EXAM: 08/27/2024 COMPARISON: Outside left knee x-ray August 18, 2024 HISTORY: Lt knee outer pain for 2 months, history of prior surgery. TECHNIQUE: Multiplanar, multisequence images of the knee is performed without IV contrast. FINDINGS: MEDIAL MENISCUS: Medial extrusion medial meniscus. Truncated appearance posterior horn with abnormal signal. LATERAL MENISCUS: Abnormal signal anterior and posterior horns. Abnormal signal likely extends to sup erior articular surface of the central body coronal image 22 CRUCIATE LIGAMENTS: The anterior and posterior cruciate ligaments are intact and unremarkable. COLLATERAL LIGAMENTS: The medial collateral ligament and lateral collateral ligament complex are inta ct and unremarkable. EXTENSOR MECHANISM: Visualized quadriceps and patellar tendons are intact. EFFUSION: Large size suprapatellar joint effusion. POPLITEAL CYST: No popliteal/jordan cyst. TRICOMPARTMENT SPACES: Moderate to severe narrowing medial tibiofemoral compartment. Mild to moderate narrowing and mild spurring patellofemoral compartment. CARTILAGE: Significant cartilaginous loss medial tibiofemoral compartment. BONE MARROW SIGNAL: No focal abnormal marrow signal is appreciated. OTHER: No additional significant abnormality is appreciated. IMPRESSION: 1. At least intrasubstance tear suspected full-thickness tear in the lateral meniscus. 2. Likely postsurgical change and recurrent tear posterior horn medial meniscus. 3. Large-sized suprapatellar joint effusion. 4. Tricompartmental degenerative changes most prominent medial tibiofemoral compartment as detailed a aixa likely on basis of osteoarthritis. [facility], Workstation: [id number], 08/28/2024 1:27 AM
== END | disposition home or self-care (01) ==
LOC: RADMRIMAIN 12:43
PROVIDERS: ATTEND Orthopaedic Surgery

== ENCOUNTER 2024-10-22 11:59 | Day surgery (SDC) | payer MEDICARE ==
--- NOTE | 2024-10-22 01:29 | HP ---
HISTORY AND PHYSICAL DATE OF SURGERY: 10/22/2024. HISTORY OF PRESENT ILLNESS: Rasheed Landon is a 74-year-old gentleman seen with progressive left knee pain. We discussed options regarding treatment. He elected to proceed with left knee arthroscopy. Consent was obtained. Medical clearance provided by Dr. Jose L Pedro. PAST MEDICAL HISTORY: Hyperlipidemia, hypertension, cardiovascular disease. PAST SURGICAL HISTORY: Appendectomy, coronary artery bypass surgery. DAILY MEDICATIONS: 1. Atorvastatin. 2. Carvedilol. 3. Lisinopril. ALLERGIES: None. SOCIAL HISTORY: Noncontributory. PHYSICAL EVALUATION OF THE LEFT KNEE: His range of motion is 0 to 120 degrees. He has a moderate plus effusion. Tenderness along the medial and lateral joint lines. Positive medial Sandy's. Positive lateral Sandy's. His ligaments are stable. Hip rotation is without pain. Distal neurovascular exam is intact. IMAGING STUDIES: Left knee radiographs revealed moderate osteoarthritis. Left knee MRI revealed medial and lateral meniscal tears as well as a large effusion. IMPRESSION: 1. Internal derangement of left knee with medial and lateral meniscal tears. 2. Hypertension. 3. Hyperlipidemia. PLAN: Left knee arthroscopy with partial medial/lateral meniscectomy and debridement. MMODL / IJN: [id number] /
[~2024-10-22 11:59] MED LIST changes: -ACETAMINOPHEN TAB 500 MG TAB PO ONE; -DEXAMETHASONE SOD PHOSPHATE 10 MG/ML 1 ML VIAL IV ONE; -LIDOCAINE 1% 20 ML VIAL (10MG/ML) FOR IV START INTRADERMA PRN; -MELOXICAM 7.5 MG TAB PO ONE; -ONDANSETRON 4 MG/2 ML VIAL IVP ONE; -ROPIVACAINE 246.25 MG, EPINEPHrine 0.5 MG, KETOROLAC 30 MG, cloNIDine HCL/PF 80 MCG, WA... MISCELLANE ONE; -TRANEXAMIC ACID 1,000 MG in SODIUM CHLORIDE 0.9% 100 ML IVPB ONE
[2024-10-22] MEDS: IV FLUID CONTINUATION 1,000 ML IV ONE (12:37)
[2024-10-22] MEDS: LACTATED RINGERS 1,000 ML IV SCH (13:16)
[2024-10-22] MEDS: ONDANSETRON 4 MG/2 ML VIAL IVP STA (13:17)
[2024-10-22] MEDS: DEXAMETHASONE SOD PHOSPHATE 4 MG/ML 1 ML VIAL IVP STA (13:19)
[2024-10-22] MEDS: BUPIVACAINE (PF) 0.25% 30 ML VIAL MISCELLANE ONE ×2 (14:31→15:22)
[2024-10-22] MEDS ORDERED: fentaNYL (PF) 50 MCG/ML 2 ML AMP ONE (14:33)
[2024-10-22] MEDS ORDERED: KETOROLAC 15 MG/ML 1 ML VIAL ONE (14:33)
[2024-10-22] MEDS ORDERED: KETAMINE HCL IN 0.9 % NACL 50 MG/5 ML SYRINGE ONE (14:33)
[2024-10-22] MEDS ORDERED: LIDOCAINE 1% INJ 10MG/ML (20 ML MDV) ONE (14:33)
[2024-10-22] MEDS ORDERED: MIDAZOLAM 2 MG/2 ML VIAL ONE (14:33)
[2024-10-22] MEDS ORDERED: PROPOFOL 10 MG/ML 20 ML VIAL IV ONE (14:33)
--- NOTE | 2024-10-22 15:42 | P.OP ---
Date of Procedure: 10/22/24 Preoperative Diagnosis: Internal derangement left knee Postoperative Diagnosis: 1. Tear medial and lateral meniscus left knee 2. 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 Reactive synovitis medial, lateral and suprapatellar compartments left knee Procedure(s) Performed: 1. Arthroscopic partial medial and lateral meniscectomy left knee 2. Arthroscopic microfracture lateral tibial plateau left knee 3. Arthroscopic partial synovectomy medial, lateral and suprapatellar compartments left knee Anesthesia: MARILEEA, local Surgeon: Guevara Guy Estimated Blood Loss (ml): 7 Pathology: none sent Condition: stable Disposition: PACU Indications for Procedure: 74-year-old gentleman seen with progressive left knee pain. After having treatment options discussed, he elected to proceed with arthroscopy. Operative Findings: See description of procedure Description of Procedure: Patient was taken to the operative suite. Patient underwent a general anesthetic by the department of anesthesia. Patient was given preoperative antibiotics. The left lower extremity was placed in a well-padded arthroscopic leg rossi. The left leg was prepped and draped in the normal sterile orthopedic fashion. A lateral parapatellar and suprapatellar incision was made. Trochars were inserted. Arthroscopy was initiated. Suprapatellar pouch revealed diffuse thick reactive synovitis. The patellofemoral joint appeared appear to articulate congruently. There was grade II/III chondromalacia changes patellofemoral joint without significant tears. The scope was guided into the medial gutter. No loose bodies or plica were identified. The scope was then guided into the medial compartment. A medial parapatellar incision was made. Trocar inserted followed by probe. There was a complex tear involving mid body and posterior horn medial meniscus. There were grade II/III chondromalacia changes medial femoral condyle with out significant osteochondral tears. There was some thick reactive synovitis anteriorly. I performed a partial medial meniscectomy getting down to stable meniscal tissue. I performed a partial synovectomy decompressing the reactive synovitis. The residual meniscus was stable. There was good decompression of the synovitis. Scope and probe were then guided into the intercondylar notch. Cruciates were identified, probed and found to be stable. The scope and probe were then guided into lateral compartment. There was a complex tear involving the mid body and posterior horns of the lateral meniscus. There was an area of grade IV chondromalacia of the medial aspect of the tibial plateau with about a 1.5 area of exposed bone. There was thick reactive synovitis anteriorly. I performed a partial lateral meniscectomy getting down to stable meniscal tissue. I performed a partial synovectomy decompressing the thick reactive synovitis. I introduced a microfracture awl and I performed a microfracture to that area of exposed bone lateral tibial plateau penetrating the bone with resultant bleeding at the microfracture site. The residual meniscus was stable. There was good decompression of the synovitis. The residual osteochondral surface was stable. The scope was in guided back into the suprapatellar compartment. I introduced a motorized shaver into the suprasellar compartment. I I debrided some piecemeal fragments of meniscus that I encountered. I performed a partial synovectomy. The shaver was removed. There was good decompression of the synovitis. I took one more look around the entire knee, no residual debris. Instruments were now removed from the joint. The joint was infiltrated with .25% Marcaine. Steri- Strips were applied to the portal sites. Sterile dressings were applied. The patient was placed into a RODRIGUE hose. No tourniquet was utilized. The patient was awakened, transferred to a bed and taken to recovery stable satisfactory condition.
[2024-10-22 16:27] VITALS: TEMP 96.8
[2024-10-22 17:13] VITALS: BP 127/68; PULSE 62; RESP 16
== END 2024-10-22 17:44 | disposition home or self-care (01) ==
LOC: OR 11:59
PROVIDERS: ATTEND Orthopaedic Surgery
DX: S83.232A Complex tear of medial meniscus, current injury, left knee, initial encounter (principal); S83.272A Complex tear of lateral meniscus, current injury, left knee, initial encounter; M94.262 Chondromalacia, left knee; M65.862 Other synovitis and tenosynovitis, left lower leg; I10 Essential (primary) hypertension; I25.10 Atherosclerotic heart disease of native coronary artery without angina pectoris; Z95.1 Presence of aortocoronary bypass graft; E78.5 Hyperlipidemia, unspecified; G47.33 Obstructive sleep apnea (adult) (pediatric); K21.9 Gastro-esophageal reflux disease without esophagitis; Z79.82 Long term (current) use of aspirin; Z79.899 Other long term (current) drug therapy; X58.XXXA Exposure to other specified factors, initial encounter
CPT/HCPCS: 29880; 29879; 29876; J1100; J0690; J2405; J0665